=== PATIENT | male | born 1995 | race Caucasian/White ===

== ENCOUNTER 2017-11-07 19:31 | Emergency (ER) ==
[2017-11-07 19:31] VITALS: BMI 24.3
--- NOTE | 2017-11-07 19:48 | ED.PDOC ---
General ED Provider: Dr. KEISHA RIZZO-ER Chief Complaint: Non-specific Complaint Stated Complaint: my ear is bleeding--i went down a water slide hard 2 weeks ago and hurt my ear Time Seen by Physician: 19:46 Information Source: Patient Exam Limitations: No limitations Primary Care Provider: VIJAY CARRASCO Nursing and Triage Documentation Reviewed and Agree: Yes Does patient meet sepsis criteria?: No System Inflammatory Response Syndrome: Not Applicable Sepsis Protocol: For patient's 13 years and over: Temp is 96.8 and below OR 101 and greater Pulse >90 BPM Resp >20/minute Acutely Altered Mental Status Are patient's symptoms suggestive of a new infection, such as: -Pneumonia -Skin, Soft Tissue -Endocarditis -UTI -Bone, Joint Infection -Implantable Device -Acute Abdominal Infection -Wound Infection -Meningitis -Blood Stream Catheter Infection -Unknown EENT Complaint Exam - Ear Complaint/Exam Onset/Duration: today Symptoms Are: Still present Initial Severity: Mild Current Severity: Mild Character: Reports: Dull pain, Aching pain Aggravating: Reports: None Alleviating: Reports: None Associated Signs and Symptoms: Reports: Ear trauma, Bleeding. Denies: Ear swelling, Discharge, Fever, Hearing loss, Sore throat, Headache, URI symptoms, Foreign body sensation, Rash, Pain to external ear, Pain to external face Ear Surgical History: None Vesicles to External Pinna: No Vesicles to Tragus: No TMJ Tenderness: None Mastoid Tenderness: None Tragal Tenderness: None Material in Canal: Present: Blood Tympanic Membrane: Perforation Differential Diagnoses: Otitis Media, Perforated TM Review of Systems - Review Of Systems Constitutional: Reports: No symptoms Eyes: Reports: No symptoms Ears, Nose, Mouth, Throat: Reports: Ear pain, Ear discharge Respiratory: Reports: No symptoms Cardiac: Reports: No symptoms GI: Reports: No symptoms : Reports: No symptoms Musculoskeletal: Reports: No symptoms Skin: Reports: No symptoms Neurological: Reports: No symptoms Endocrine: Reports: No symptoms Hematologic/Lymphatic: Reports: No symptoms All Other Systems: Reviewed and Negative Past Medical History - Past Medical History Previously Healthy: No Endocrine: Reports: Unknown Cardiovascular: Reports: Unknown Respiratory: Reports: Unknown Hematological: Reports: Unknown Gastrointestinal: Reports: Unknown Genitourinary: Reports: Unknown Neuro/Psych: Reports: Unknown Musculoskeletal: Reports: Unknown Cancer: Reports: Unknown - Surgical History General Surgical History: Reports: Unknown - Family History Family History: Reports: Unknown - Social History Smoking Status: Never smoker Hx Substance Use: No Alcohol Screening: Occasionally - Immunizations Tetanus Shot up to Date: Yes Physical Exam - Physical Exam Appearance: Well-appearing, No pain distress, Well-nourished Eyes: YAHAIRA ENT: Ears normal (noted right tm with perforation and blood in the external canal), Nose normal, Oropharynx normal Respiratory: Airway patent Cardiovascular: RRR, Pulses normal, No rub, No murmur GI/: Soft, Nontender, No masses, Bowel sounds normal, No Organomegaly Musculoskeletal: Normal strength, ROM intact, No edema, No calf tenderness Skin: Warm, Dry, Normal color Neurological: Sensation intact, Motor intact, Reflexes intact, Cranial nerves intact, Alert, Oriented Psychiatric: Affect appropriate, Mood appropriate Critical Care Note - Critical Care Note Total Time (mins): 0 Course - Course Vital Signs: Temp Pulse Resp BP Pulse Ox 11/07/17 19:31 98 F 73 14 162/97 H 98 Departure - Departure Time of Disposition: 19:48 Disposition: HOME SELF-CARE Discharge Problem: Otitis media, acute with perforation of eardrum Qualifiers: Laterality: right Recurrence: not specified as recurrent Qualified Code(s): H66.011 - Acute suppurative otitis media with spontaneous rupture of ear drum, right ear Instructions: Ear Infection (ED) Condition: Good Pt referred to PMD for follow-up: Yes IPMP verified?: No Additional Instructions: dry ear precautions--augmentin 875mg bid x 10 days--see dr carrasco next week to recheck ear Allergies/Adverse Reactions: Allergies No Known Allergies Allergy (Verified 11/07/17 19:35) Home Medications: Ambulatory Orders 1 [No Reported Medications] 07/03/13 Disposition Discussed With: Patient
[2017-11-07 19:51] VITALS: BP 162/97; TEMP 98
== END 2017-11-07 19:55 | disposition home or self-care (01) ==
LOC: ED 19:31
DX: H66.011 Acute suppurative otitis media with spontaneous rupture of ear drum, right ear (principal)
CPT/HCPCS: 99282